=== PATIENT | female | born 1960 | race Two or more races ===

== ENCOUNTER 2022-01-20 13:22 | Outpatient (CLI) | payer OTHER ==
[2022-01-26] MEDS ORDERED: TRAM50TA2 PO (10:01)
== END 2022-01-20 23:59 | disposition home or self-care (01) ==
LOC: LAB 13:22
PROVIDERS: ATTEND Specialist
DX: Z01.812 Encounter for preprocedural laboratory examination (principal); Z20.822 Contact with and (suspected) exposure to COVID-19
CPT/HCPCS: U0003; C9803

== ENCOUNTER → 2022-01-26 | Day surgery (SDC) | payer OTHER ==
[~2022-01-26] VITALS: Ht 165.1 cm; Wt 91.6 kg
[~2022-01-26] MED LIST: BUPIVACAINE 0.5 % PF 150 MG/30 ML VIAL ONE; EPINEPHRINE (1:1000) 1 MG/ML AMPUL ONE; HYDROCODONE/APAP 5/325MG TABLET PO PRN; HYDROMORPHONE 1 MG/1 ML DISP.SYRIN ONE; HYDROMORPHONE INJ 2 MG/ML DISP.SYRIN ONE; MIDAZOLAM HCL 2 MG/2ML VIAL ONE; ROCURONIUM BROMIDE 50 MG/5 ML ONE; TRAM50TA2 PO; methylPREDNISolone ACETATE 80 MG/ML VIAL ONE
--- NOTE | 2022-01-26 05:30 | NUR ---
EVENT SPECIALIST NOTES ADMITTED THIS PATIENT FROM HOME; AMBULATORY; FOR DAY SURGERY. PATIENT IS AWAKE, ALERT AND ORIENTED X4. BREATHING EVEN AND NONLABORED. ON ROOM AIR; TOLERATING WELL. VS TAKEN AND RECORDED FOLLOWS: TEMP-98.2, DC-66 BPM, RR-19 BPM, BP-152/68 MM HG, O2 SAT-98%. ABLE TO MAKE NEEDS KNOWN. PERSONAL BELONGINGS CHECKED AND ACCOUNTED FOR. SAFETY MEASURES IMPLEMENTED: CALL LIGHT AND TABLE WITHIN REACH, SIDE RAILS UP X2, BED IN LOWEST LOCKED POSITION. WILL CONTINUE TO MONITOR.
[2022-01-26 09:30] VITALS: BP 144/95
--- NOTE | 2022-01-26 09:30 | NUR ---
RN MS NOTE RECEIVED PATIENT FROM SURGERY. PT AWAKE, A/O X 4, ABLE TO MAKE NEEDS KNOWN. PT HAD RIGHT SHOULDER ARTHROSCOPY, ACROMIOPLASTY, AND ROTATOR CUFF REPAIR. HAS SLING TO RUE. VS STABLE, WITH O2 ON 3L NC. NO S/S OF RESPIRATORY DISTRESS NOTED. WILL CONTINUE TO MONITOR PT.
[2022-01-26 10:30] VITALS: BP 138/92
[2022-01-26 11:30] VITALS: BP 130/87
[2022-01-26 11:32] VITALS: BP 130/87
--- NOTE | 2022-01-26 13:01 | NUR ---
RN MS NOTES PT AWAKE, ALERT AND ORIENTED, NOT IN DISTRESS, RESPIRATIONS NORMAL, NO COMPLAINT OF PAIN AT THIS TIME, DRESSING TO RIGHT SHOULDER INTACT, NO BLEEDING NOTED, ATE LUNCH, VITAL SIGNS TAKEN AND RECORDED, DISCHARGE AND MEDICATION INSTRUCTIONS PROVIDED TO PT, PT TO FOLLOW UP WITH DR. IZAGUIRRE, VERBALIZED UNDERSTANDING, BELONGINGS ACCOUNTED FOR, ASSISTED TO WHEELCHAIR, ASSISTED TO HOSPITAL LOBBY, PICKED UP BY FAMILY MEMBER, LEFT VIA PRIVATE CAR IN STABLE CONDITION.
== END | disposition home or self-care (01) ==
LOC: DS 05:04 → UNDOADMIN 05:07 → MED 05:07 → UNDODISIN 13:10
PROVIDERS: ATTEND Specialist
DX: M75.41 Impingement syndrome of right shoulder (principal); M94.211 Chondromalacia, right shoulder; Z20.822 Contact with and (suspected) exposure to COVID-19; Z98.890 Other specified postprocedural states; Z79.899 Other long term (current) drug therapy
CPT/HCPCS: 29827; 29826; 71045; 73501; 87081; J0690; J3490 ×4; J1100; J2704; J0171; J1170 ×3; J0330; J1885; J2405; C1713 ×2; J7030; J2250; A4217; G0378; J1040